=== PATIENT | female | born 1985 | race Caucasian/White ===

== ENCOUNTER 2019-09-09 12:03 | Inpatient (IN) | payer BC ==
[2019-09-09] MEDS ORDERED: LIDOCAINE 1% INJ-PF (10 MG/ML) 30 ML SDV ONE (12:35)
[2019-09-09] MEDS ORDERED: OXYTOCIN/NORMAL SALINE 20 UNIT/1,000 ML RTUINJ ONE (12:35)
[2019-09-09] MEDS ORDERED: PENICILLIN G-K 5 MILLION UNIT VIAL ONE ×2 (12:35→17:06)
[2019-09-09] MEDS ORDERED: MISOPROSTOL 0.2 MG TABLET ONE (12:35)
[2019-09-09] MEDS ORDERED: PENICILLIN G POTASSIUM 5,000,000 UNIT in DEXTROSE 5%-WATER 100 ML IV ONE (12:40)
[2019-09-09] MEDS ORDERED: RINGERS SOLUTION,LACTATED 1,000 ML IV PRN (12:40)
--- NOTE | 2019-09-09 12:48 | Admission Physical ---
Datetime Report Generated by CPN: 09/09/2019 12:48 CURRENT ADMISSION Hx Assessment: The History has been Reviewed and is Current Chief Complaint: Uterine Contractions Indication for Induction: Not Applicable Admit Impression : Term, Intrauterine ; Active Labor; Intact Membranes Admit Plan: Admit to Unit; Initiate Labor Protocol Admit Plan- Other: + GBS, start PCN prophylaxis ALLERGIES Medication Allergies: Yes Medication Allergies: prednisone (09/09/2019) OBSTETRICAL HISTORY EDC: 09/15/2019 00:00 : 2 Para: 1 Term: 1 : 0 SAB: 0 IAB: 0 Ectopic: 0 Livin Cesareans: 0 VBACs: 0 Multiple Births: 0 Gestational Diabetes: No Rh Sensitization: No Incompetent Cervix: No HORACE: No Infertility: No ART Treatment: No Uterine Anomaly: No IUGR: No Hx Previous C/S: No Macrosomia: No Hx Loss/Stillborn: No PIH: No Hx : No Placenta Previa/Abruption: No Depression/PP Depression: No PTL/PROM: No Post Hemorrhage: No SEE RECORDS Alcohol: No Marijuana : No Cocaine: No Other Illicit Drugs: No Cigarettes: Never Smoker. 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 Heart Disease: No Hosp/Surgery: No Autoimmune Disorder: No Anesthetic Complications: No Kidney Disease: No Abnormal Pap Smear: No Neuro/Epilepsy: No Psychiatric Disorders: No Other Medical Diseases: No Hepatitis/Liver Disease: No Significant Family History: No Varicosities/Phlebitis: No Trauma/Violence : No Thyroid Dysfunction: Yes Medical History Comments: hypothyroid INFECTIOUS HISTORY Gonorrhea: No Genital Herpes: No Chlamydia: No Tuberculosis: No Syphilis: No Hepatitis: No HIV/AIDS Exposure: No Rash or Viral Illness: No HPV: No PHYSICAL EXAM General: Normal HEENT: Deferred Neurologic: Normal Thyroid: Deferred Heart: Normal Lungs: Normal Breast: Deferred Back: Deferred Abdomen: Normal Genitourinary Exam: Normal Extremities: Normal DTRs: Deferred Pelvic Type: Adequate Vital Signs: Reviewed VAGINAL EXAM Dilatation: 6 Effacement: 60 Station: -2 MEMBRANES Membranes: Bulging FETUS A EGA: 39.1 Monitoring: External US FHR- Baseline: 140 Variability: Moderate 6-25bpm Accelerations: 15X15 Decelerations: None FHR Category: Category I Presentation: Vertex Admit Comment: Admit for labor PLANS FOR LABOR AND DELIVERY Labor and Delivery: None Pain Management: None Feeding Preference: Breast Benefit of Breast Feed Discussed: Yes Circumcision: No INFORMED CONSENT Assignment: Giselle Cuadra MD Signature: with User ID: Marcus : with User ID: Marcus
[2019-09-09 12:59] LABS: APPEARANCE,URINE CLOUDY; BILIRUBIN,URINE NEGATIVE (NEGATIVE); COLOR,URINE YELLOW; GLUCOSE, URINE NEGATIVE (NEGATIVE); KETONES,URINE NEGATIVE (NEGATIVE); LEUKOCYTE ESTERASE,URINE LARGE (NEGATIVE); NITRITE,URINE NEGATIVE (NEGATIVE); PROTEIN,URINE 30 mg/dL (NEGATIVE); URINE SPECIFIC GRAVITY 1.018; UROBILINOGEN,URINE NEGATIVE mg/dL (<2.0)
[2019-09-09 13:22] LABS: URINE AMPHETAMINES SCREEN NEGATIVE; URINE BARBITURATES SCREEN NEGATIVE; URINE BENZODIAZEPINES SCREEN NEGATIVE; URINE COCAINE SCREEN NEGATIVE; URINE MARIJUANA (THC) SCREEN NEGATIVE; URINE METHADONE SCREEN NEGATIVE; URINE PHENCYCLIDINE SCREEN NEGATIVE
[2019-09-09 14:36] LABS: ABSOLUTE LYMPHOCYTES (AUTO) 1.1 10^3/uL (0.5-4.7); ABSOLUTE MONOCYTES (AUTO) 0.7 10^3/uL (0.1-1.4); ABSOLUTE NEUT (AUTO) 13.9 10^3/uL (1.7-8.2); BASOPHILS % (AUTO) 0.2 % (0-2); HEMATOCRIT 31.9 % (36.0-47.0); HEMOGLOBIN 11.5 g/dL (12.0-15.5); LYMPHOCYTES % (AUTO) 7.2 % (13-45); MEAN CORPUSCULAR HEMOGLOBIN 31.2 pg (27.0-33.4); MEAN CORPUSCULAR HGB CONC 36.1 g/dL (32.0-36.0); MEAN CORPUSCULAR VOLUME 86 fl (80-97); MONOCYTES % (AUTO) 4.4 % (3-13); PLATELET COUNT 171 10^3/uL (150-450); RED CELL DISTRIBUTION WIDTH 13.4 % (11.5-14.0); SEGMENTED NEUTROPHILS % (AUTO) 88.2 % (42-78); TOTAL CELLS COUNTED % (AUTO) 100 %; WHITE BLOOD COUNT 15.8 10^3/uL (4.0-10.5)
[2019-09-09] MEDS ORDERED: ONDANSETRON HCL INJ/PF 4 MG/2 ML SDV IV ONE (16:03)
[2019-09-09] MEDS ORDERED: ONDANSETRON HCL INJ/PF 4 MG/2 ML SDV ONE (16:04)
[2019-09-09] MEDS ORDERED: PENICILLIN G POTASSIUM 2,500,000 UNIT in DEXTROSE 5%-WATER 50 ML IV SCH (16:42)
[2019-09-09] MEDS ORDERED: PROMETHAZINE HCL 25 MG TABLET PO PRN (18:01)
[2019-09-09] MEDS ORDERED: MEASLES,MUMPS&RUBELLA VACC/PF 0.5 ML VIAL SUBCUT PRN (18:01)
[2019-09-09] MEDS ORDERED: PROMETHAZINE HCL INJ 25 MG/1 ML VIAL IV PRN (18:01)
[2019-09-09] MEDS ORDERED: GLYCERIN/WITCH HAZEL LEAF 1 EACH MED..WIPE TP PRN (18:01)
[2019-09-09] MEDS ORDERED: PROMETHAZINE HCL 25 MG SUPP.RECT PR PRN (18:01)
[2019-09-09] MEDS ORDERED: ACETAMINOPHEN 650 MG SUPP.RECT PR PRN (18:01)
[2019-09-09] MEDS ORDERED: BENZOCAINE/MENTHOL AEROSOL SPRAY 56 ML TOP PRN (18:01)
[2019-09-09] MEDS ORDERED: ZOLPIDEM TARTRATE 5 MG TABLET PO PRN (18:01)
[2019-09-09] MEDS ORDERED: OXYTOCIN/NORMAL SALINE 20 UNIT/1,000 ML RTUINJ IV PRN (18:01)
[2019-09-09] MEDS ORDERED: MAGNESIUM HYDROXIDE SUSP 30 ML UDCUP PO PRN (18:01)
[2019-09-09] MEDS ORDERED: DIPH/PERTUSS(ACELL)/TETANUS VAC/PF 0.5 ML SYR (>=10YO) IM PRN (18:01)
[2019-09-09] MEDS ORDERED: ACETAMINOPHEN WITH CODEINE #3 TABLET PO PRN (18:01)
[2019-09-09] MEDS ORDERED: DIPHENHYDRAMINE HCL 25 MG CAPSULE PO PRN (18:01)
[2019-09-09] MEDS ORDERED: NA PHOS,M-B/NA PHOS,DI-BA (ADULT) 133 ML ENEMA PR PRN (18:01)
[2019-09-09] MEDS ORDERED: PSEUDOEPHEDRINE HCL 30 MG TABLET PO PRN (18:01)
[2019-09-09] MEDS ORDERED: DIBUCAINE 1% OINTMENT 28 GM TP PRN (18:01)
[2019-09-09] MEDS ORDERED: IBUPROFEN 800 MG TABLET ONE (18:27)
[2019-09-09] MEDS ORDERED: MISOPROSTOL 0.1 MG TABLET PR ONE (18:39)
[2019-09-09] MEDS: FAMOTIDINE 20 MG TABLET PO SCH (21:17)
[2019-09-09] MEDS: ACETAMINOPHEN WITH CODEINE #3 TABLET PO PRN (22:49)
[2019-09-10] MEDS: IBUPROFEN 800 MG TABLET PO SCH ×4 (06:36→22:02)
[2019-09-10 07:24] LABS: HEMATOCRIT 34.8 % (36.0-47.0); HEMOGLOBIN 12.4 g/dL (12.0-15.5); MEAN CORPUSCULAR HEMOGLOBIN 30.8 pg (27.0-33.4); MEAN CORPUSCULAR HGB CONC 35.5 g/dL (32.0-36.0); MEAN CORPUSCULAR VOLUME 87 fl (80-97); PLATELET COUNT 192 10^3/uL (150-450); RED BLOOD COUNT 4.02 10^6/uL (3.72-5.28); RED CELL DISTRIBUTION WIDTH 13.9 % (11.5-14.0); WHITE BLOOD COUNT 19.4 10^3/uL (4.0-10.5)
[2019-09-10] MEDS: LEVOTHYROXINE SODIUM 0.075 MG TABLET PO SCH (08:53)
[2019-09-10] MEDS: FAMOTIDINE 20 MG TABLET PO SCH ×2 (09:37→22:03)
[2019-09-10] MEDS: FERROUS SULFATE 325 MG TABLET PO SCH ×2 (09:37→17:10)
[2019-09-10] MEDS: SENNOSIDES/DOCUSATE 8.6-50 MG 1 EACH TABLET PO SCH (09:37)
[2019-09-10] MEDS: PRENATAL VITAMIN W DHA CAPSULE PO SCH (09:37)
[2019-09-10] MEDS: DOCUSATE SODIUM 100 MG CAPSULE PO SCH ×2 (09:37→17:10)
[2019-09-10] MEDS ORDERED: LEVOTHYROXINE SODIUM 0.075 MG TABLET PO SCH (10:00)
--- NOTE | 2019-09-10 11:05 | PDOC PROGRESS REPORT ---
Subjective-OB Progress Note for:: 09/10/19 - PP Day #1, doing well, , up voiding, no complaints. O+, Rubella Non-immune Physical Exam (OB) Vital Signs: Temp Pulse Resp BP Pulse Ox 97.9 F 64 18 117/79 98 09/10/19 07:32 09/10/19 07:32 09/10/19 07:32 09/10/19 07:32 09/10/19 07:32 Intake & Output 09/09/19 09/10/19 09/11/19 06:59 06:59 06:59 Weight 144.4 kg - General General Appearance: Appears well, Alert - PIH/Pre-Eclampsia Headache: Absent Epigastric Pain: No Visual Changes: No - Lochia Lochia Amount: Scant < 10 ml Lochia Color: Rubra/Red - Abdomen Description: Soft Fundal Description: Firm, Midline Fundal Height: u/u - u/2 - Respiratory Respiratory Status: No respiratory distress - Abdominal Distension: No distension Tenderness: Nontender - Genitourinary Genitourinary Note: voiding - Extremities Upper extremity: Normal inspection Lower extremities: Normal inspection - Neurological Cognition: Normal Orientation: AAOx4 - Skin Skin Temperature: Warm Skin Moisture: Dry Objective-Diagnostic Laboratory: 09/10/19 07:03 09/09/19 09/09/19 09/09/19 12:20 14:07 14:07 WBC 15.8 H RBC 3.70 L Hgb 11.5 L Hct 31.9 L MCV 86 MCH 31.2 MCHC 36.1 H RDW 13.4 Plt Count 171 Seg Neutrophils % 88.2 H Urine Color YELLOW Urine Appearance CLOUDY Urine pH 5.0 Ur Specific [place] 1.018 Urine Protein 30 H Urine Glucose (UA) NEGATIVE Urine Ketones NEGATIVE Urine Blood MODERATE H Urine Nitrite NEGATIVE Ur Leukocyte Esterase LARGE H Blood Type O POSITIVE Antibody Screen NEGATIVE 09/10/19 07:03 WBC 19.4 H RBC 4.02 Hgb 12.4 Hct 34.8 L MCV 87 MCH 30.8 MCHC 35.5 RDW 13.9 Plt Count 192 Seg Neutrophils % Urine Color Urine Appearance Urine pH Ur Specific [place] Urine Protein Urine Glucose (UA) Urine Ketones Urine Blood Urine Nitrite Ur Leukocyte Esterase Blood Type Antibody Screen Assessment and Plan(PN) - Assessment and Plan (1) Active labor at term Is this a current diagnosis for this admission?: Yes (2) Group B streptococcal carriage complicating Is this a current diagnosis for this admission?: Yes (3) Vaginal delivery Is this a current diagnosis for this admission?: Yes - Time Spent with Patient Time with patient: Less than 15 minutes Medications reviewed and adjusted accordingly: Yes - Disposition Anticipated Discharge: Home Within: within 24 hours
[2019-09-10] MEDS: ACETAMINOPHEN WITH CODEINE #3 TABLET PO PRN (15:25)
[2019-09-11] MEDS: LEVOTHYROXINE SODIUM 0.075 MG TABLET PO SCH (05:15)
[2019-09-11] MEDS: IBUPROFEN 800 MG TABLET PO SCH (05:15)
[2019-09-11 08:26] VITALS: BP 117/78
[2019-09-11] MEDS: FAMOTIDINE 20 MG TABLET PO SCH (09:50)
[2019-09-11] MEDS: DOCUSATE SODIUM 100 MG CAPSULE PO SCH (09:50)
[2019-09-11] MEDS: FERROUS SULFATE 325 MG TABLET PO SCH (09:50)
[2019-09-11] MEDS: PRENATAL VITAMIN W DHA CAPSULE PO SCH (09:50)
[2019-09-11] MEDS: SENNOSIDES/DOCUSATE 8.6-50 MG 1 EACH TABLET PO SCH (09:50)
[2019-09-11] MEDS: ACETAMINOPHEN WITH CODEINE #3 TABLET PO PRN (09:57)
--- NOTE | 2019-09-11 10:24 | PDOC PROGRESS REPORT ---
Subjective-OB Progress Note for:: 09/11/19 Subjective: Ready for discharge. Physical Exam (OB) Vital Signs: Temp Pulse Resp BP Pulse Ox 97.7 F 75 16 117/78 98 09/11/19 08:24 09/11/19 08:24 09/11/19 08:24 09/11/19 08:24 09/11/19 08:24 Intake & Output 09/10/19 09/11/19 09/12/19 06:59 06:59 06:59 Weight 144.4 kg - PIH/Pre-Eclampsia DTR's: 2 + Clonus: Negative Headache: Absent Epigastric Pain: No Visual Changes: No - Lochia Lochia Amount: Scant < 10 ml Lochia Color: Rubra/Red - Abdomen Description: Soft Hernia Present: No Bowel Sounds: Normoactive Flatus Presence: Present Stool: Yes Fundal Description: Firm, Midline Fundal Height: u/u - u/2 Objective-Diagnostic Laboratory: 09/10/19 07:03 Assessment and Plan(PN) - Time Spent with Patient Medications reviewed and adjusted accordingly: Yes - Disposition Anticipated Discharge: Home
--- NOTE | 2019-09-11 10:31 | PDOC DISCHARGE SUMMARY ---
Impression - Admit/DC Date/PCP Admission Date/Primary Care Provider: 09/09/19 12:37 DEBORA MEMBRENO MD Discharge Date: 09/11/19 - Discharge Diagnosis (1) Active labor at term Is this a current diagnosis for this admission?: Yes (2) Group B streptococcal carriage complicating Is this a current diagnosis for this admission?: Yes (3) Vaginal delivery Is this a current diagnosis for this admission?: Yes - Additional Information Resuscitation Status: Full Code Discharge Diet: Regular Discharge Activity: Activity As Tolerated, Balance Activity w/Rest, Pelvic Rest, Slowly Increase Activity, No tub bath Referrals: DEBORA MEMBRENO MD [Primary Care Provider] - Home Medications: Vits96/Iron Fum/Folic [ Tablet] 1 tab PO DAILY 09/09/19 HPI Gestational Age: 39.1 wks Reason(s) for Admission: Onset of Labor Procedures: Ultrasound Intrapartum Procedure(s): Spontaneous Vaginal Delivery Results Laboratory Results: WBC 19.4 10^3/uL (4.0-10.5) H 09/10/19 07:03 RBC 4.02 10^6/uL (3.72-5.28) 09/10/19 07:03 Hgb 12.4 g/dL (12.0-15.5) 09/10/19 07:03 Hct 34.8 % (36.0-47.0) L 09/10/19 07:03 MCV 87 fl (80-97) 09/10/19 07:03 MCH 30.8 pg (27.0-33.4) 09/10/19 07:03 MCHC 35.5 g/dL (32.0-36.0) 09/10/19 07:03 RDW 13.9 % (11.5-14.0) 09/10/19 07:03 Plt Count 192 10^3/uL (150-450) 09/10/19 07:03 Lymph % (Auto) 7.2 % (13-45) L 09/09/19 14:07 [place] % (Auto) 4.4 % (3-13) 09/09/19 14:07 Eos % (Auto) 0.0 % (0-6) 09/09/19 14:07 Baso % (Auto) 0.2 % (0-2) 09/09/19 14:07 Absolute Neuts (auto) 13.9 10^3/uL (1.7-8.2) H 09/09/19 14:07 Absolute Lymphs (auto) 1.1 10^3/uL (0.5-4.7) 09/09/19 14:07 Absolute Monos (auto) 0.7 10^3/uL (0.1-1.4) 09/09/19 14:07 Absolute Eos (auto) 0.0 10^3/uL (0.0-0.6) 09/09/19 14:07 Absolute Basos (auto) 0.0 10^3/uL (0.0-0.2) 09/09/19 14:07 Seg Neutrophils % 88.2 % (42-78) H 09/09/19 14:07 Urine Color YELLOW 09/09/19 12:20 Urine Appearance CLOUDY 09/09/19 12:20 Urine pH 5.0 (5.0-9.0) 09/09/19 12:20 Ur Specific [place] 1.018 09/09/19 12:20 Urine Protein 30 mg/dL (NEGATIVE) H 09/09/19 12:20 Urine Glucose (UA) NEGATIVE mg/dL (NEGATIVE) 09/09/19 12:20 Urine Ketones NEGATIVE mg/dL (NEGATIVE) 09/09/19 12:20 Urine Blood MODERATE (NEGATIVE) H 09/09/19 12:20 Urine Nitrite NEGATIVE (NEGATIVE) 09/09/19 12:20 Urine Bilirubin NEGATIVE (NEGATIVE) 09/09/19 12:20 Urine Urobilinogen NEGATIVE mg/dL (<2.0) 09/09/19 12:20 Ur Leukocyte Esterase LARGE (NEGATIVE) H 09/09/19 12:20 Urine Ascorbic Acid NEGATIVE (NEGATIVE) 09/09/19 12:20 Urine Opiates Screen NEGATIVE 09/09/19 12:20 Urine Methadone Screen NEGATIVE 09/09/19 12:20 Ur Barbiturates Screen NEGATIVE 09/09/19 12:20 Ur Phencyclidine Scrn NEGATIVE 09/09/19 12:20 Ur Amphetamines Screen NEGATIVE 09/09/19 12:20 U Benzodiazepines Scrn NEGATIVE 09/09/19 12:20 Urine Cocaine Screen NEGATIVE 09/09/19 12:20 U Marijuana (THC) Screen NEGATIVE 02/04/20 12:20 RPR NONREACTIVE (NONREACTIVE) 09/09/19 14:07 Blood Type O POSITIVE 09/09/19 14:07 Antibody Screen NEGATIVE 09/09/19 14:07 Plan Plan of Treatment: Discharge home. Follow up at [facility] 4 wks or prn.
[2019-09-11 11:59] LABS: HEMATOCRIT 31.9 % (36.0-47.0); HEMOGLOBIN 11.5 g/dL (12.0-15.5); MEAN CORPUSCULAR HEMOGLOBIN 31.2 pg (27.0-33.4); MEAN CORPUSCULAR HGB CONC 35.9 g/dL (32.0-36.0); MEAN CORPUSCULAR VOLUME 87 fl (80-97); PLATELET COUNT 187 10^3/uL (150-450); RED BLOOD COUNT 3.67 10^6/uL (3.72-5.28); RED CELL DISTRIBUTION WIDTH 13.8 % (11.5-14.0); WHITE BLOOD COUNT 10.6 10^3/uL (4.0-10.5)
--- NOTE | 2019-09-15 14:54 | Delivery Summary ---
Del Sum A-C Datetime Report Generated by CPN: 09/15/2019 14:53 DELIVERY PERSONNEL DELIVERY PERSONNEL: [id number] Delivery Doctor:: Giselle Cuadra MD Labor and Delivery Nurse:: Isabella Goins RNfast food services manager Nurse:: TRAVIS St Exhibit Carpenter/METAL CASTER: Yumiko Phan, ST Exhibit Carpenter/METAL CASTER: Abimbola Dewitt SUPERVISOR FILES Additional Personnel: : Leeann Franks RN MATERNAL INFORMATION Delivery Anesthesia: None Medications After Delivery: Pitocin Bolus-Please Comment Delivery QBL: 150 Delivery QBL Comment: 150ml Maternal Complications: None Provider Comments: VMI delivered in KENNA presentation. No nuchal cord. Shoulders and body delivered without difficulty. Cord doubly clamped and cut. Infant to maternal abdomen. No perineal lacerations. Placenta delivered intact spontaneously. FF at U at bladder drained. Mother and baby stable upon provider leaving the room. LABOR SUMMARY EDC: 09/15/2019 00:00 No. Babies in Womb: 1 Attempted: No Labor Anesthesia: IV Sedation LABOR INFORMATION Reason for Induction: Not Applicable Onset of Labor: 09/09/2019 13:30 Complete Dilatation: 09/09/2019 17:15 Oxytocin: N/A Group B Beta Strep: positive Antibiotics # of Doses: 2 Antibiotics Time of Last Dose: 1700 Name of Antibiotic Given: penicillin Steroids Given: None Reason Steroids Not Administered: Not Applicable MEMBRANES Membranes Rupture Method: Spontaneous Rupture of Membranes: 09/09/2019 17:07 Length of Rupture (hr): 0.45 Amniotic Fluid Color: Clear Amniotic Fluid Amount: Large Amniotic Fluid Odor: Normal STAGES OF LABOR Stage 1 hr: 3 Stage 1 min: 45 Stage 2 hr: 0 Stage 2 min: 19 Stage 3 hr: 0 Stage 3 min: 6 Total Time in Labor hr: 4 Total Time in Labor min: 10 VAGINAL DELIVERY Episiotomy: None Laceration #1: None Laceration Extension #1: N/A Laceration Repair: Not Applicable Sponge Count Correct: Yes Sharps Count Correct: Yes CSECTION DELIVERY Primary Indication: N/A Secondary Indication: N/A BABY A INFORMATION Delivery Date/Time: 09/09/2019 17:34 Method of Delivery: Vaginal Nurse Controlled Delivery: No Born in Route : No : N/A Forceps: N/A Vacuum Extraction: N/A Shoulder Dystocia : No PRESENTATION/POSITION BABY A Presentation: Cephalic Cephalic Presentation: Vertex Breech Presentation: N/A PLACENTA INFORMATION BABY A Placenta Delivery Time : 09/09/2019 17:40 Placenta Method of Delivery: Spontaneous Placenta Status: Delivered INFANT INFORMATION BABY A Gestational Age at Delivery: 39.1 Gestational Status: Full Term- 39- 40.6 Weeks Outcome : Liveborn Condition : Stable Sex: Male IDENTIFICATION BABY A Verification Date/Time: 09/09/2019 17:50 ID Band Number: [id number] Mother's Name Verified: Yes RN Verifying Infant: M Sasala RN Additional Verifying Personnel: P WEIGHT/LENGTH BABY A Infant Birthweight (gm): 3355 Infant Weight (lb): 7 Infant Weight (oz): 6 Length (in): 20.50 Infant Length (cm): 52.07 CORD INFORMATION BABY A No. Cord Vessels: 3 Nuchal Cord : N/A Cord Blood Taken: Yes-For Eval (Mom's Blood Type - or O+) Infant Suction: None ASSESSMENT BABY A Skin to Skin: Yes BABY B INFORMATION : N/A SIGNATURES Signature: with User ID: Viji Caballero I was personally available for consultation and serving as supervising physician for the MLP.
== END 2019-09-11 13:41 | disposition home or self-care (01) | DRG 807 ==
LOC: LC 12:03 → LR 12:37 → 2S 20:52
PROVIDERS: ADMIT Student in an Organized Health Care Education/Training Program; ATTEND Student in an Organized Health Care Education/Training Program
PROC: 10E0XZZ Delivery of Products of Conception, External Approach (ICD-10-PCS; principal; 2019-09-09)
DX: O99.824 Streptococcus B carrier state complicating childbirth (principal); Z37.0 Single live birth; O99.284 Endocrine, nutritional and metabolic diseases complicating childbirth; E03.9 Hypothyroidism, unspecified; Z3A.39 39 weeks gestation of pregnancy
CPT/HCPCS: 36415; 80307; 81005; 85025; 85027; 86592; 86850; 86900; 86901; J2405; J2540; J2590; J3490

== ENCOUNTER 2020-08-21 20:26 | Emergency (ER) | payer BC ==
--- NOTE | 2020-08-21 21:22 | ER Document Report ---
ED Medical Screen (RME) - General Chief Complaint: Chest Pain Stated Complaint: CHEST PAIN Time Seen by Provider: 08/21/20 21:17 Primary Care Provider: DEBORA MEMBRENO MD [Primary Care Provider] - Follow up as needed Notes: HPI: 35-year-old female with history of palpitations several years ago presenting for 2 days of fairly constant palpitations that are causing some shortness of breath lightheadedness and chest pressure. 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 States she does have a thyroid issue that she is not currently on her medication for and is waiting for endocrinology appointment PHYSICAL EXAMINATION: EKG normal sinus rhythm without ectopy. Lung sounds are clear to auscultation regular rate and rhythm. I have greeted and performed a rapid initial assessment of this patient. A comprehensive ED assessment and evaluation of the patient, analysis of test results and completion of medical decision making process will be conducted by an additional ED providers. Please note that clinical decision making for this patient was made during the 2019 pandemic of novel coronavirus which caused a significant strain on the healthcare system including at this particular [facility]. Criteria for admission discharge and level of care decisions as well as treatment decisions have necessarily changed TRAVEL OUTSIDE OF THE [place] IN LAST 30 DAYS: No - Related Data Allergies/Adverse Reactions: amoxicillin [From Augmentin] Allergy (Verified 09/09/19 21:39) Nausea clavulanic acid [From Augmentin] Allergy (Verified 09/09/19 21:39) Nausea prednisone Allergy (Verified 09/09/19 21:39) Anaphylaxis Physical Exam - Vital signs Vitals: Temp Pulse Resp BP Pulse Ox 98.3 F 102 H 16 120/86 H 99 08/21/20 21:03 08/21/20 21:03 08/21/20 21:03 08/21/20 21:03 08/21/20 21:03 Course - Vital Signs Vital signs: Temp Pulse Resp BP Pulse Ox 98.3 F 102 H 16 120/86 H 99 08/21/20 21:03 08/21/20 21:03 08/21/20 21:03 08/21/20 21:03 08/21/20 21:03 Doctor's Discharge - Discharge Referrals: DEBORA MEMBRENO MD [Primary Care Provider] - Follow up as needed
[2020-08-21 22:36] LABS: ABSOLUTE EOSINOPHILS # (AUTO) 0.1 10^3/uL (0.0-0.6); ABSOLUTE LYMPHOCYTES (AUTO) 2.1 10^3/uL (0.5-4.7); ABSOLUTE MONOCYTES (AUTO) 0.4 10^3/uL (0.1-1.4); ABSOLUTE NEUT (AUTO) 5.9 10^3/uL (1.7-8.2); BASOPHILS % (AUTO) 0.3 % (0-2); EOSINOPHILS % (AUTO) 0.8 % (0-6); HEMATOCRIT 39.4 % (36.0-47.0); HEMOGLOBIN 14.1 g/dL (12.0-15.5); LYMPHOCYTES % (AUTO) 24.6 % (13-45); MEAN CORPUSCULAR HEMOGLOBIN 29.8 pg (27.0-33.4); MEAN CORPUSCULAR HGB CONC 35.8 g/dL (32.0-36.0); MEAN CORPUSCULAR VOLUME 83 fl (80-97); PLATELET COUNT 255 10^3/uL (150-450); RED BLOOD COUNT 4.73 10^6/uL (3.72-5.28); RED CELL DISTRIBUTION WIDTH 13.3 % (11.5-14.0); SEGMENTED NEUTROPHILS % (AUTO) 69.3 % (42-78); TOTAL CELLS COUNTED % (AUTO) 100 %; WHITE BLOOD COUNT 8.5 10^3/uL (4.0-10.5)
--- NOTE | 2020-08-21 22:44 | RADIOLOGY REPORT (SQ) ---
EXAM: CHEST 2 VIEWS CLINICAL INDICATION: 35-year-old female with palpitations. TECHNIQUE: Two-view, PA and lateral projections of the chest were obtained. COMPARISON: None. FINDINGS: Unremarkable cardiac and mediastinal silhouette. Heart size is normal. Lungs are clear without focal opacity, pneumothorax or pleural effusions. The visualized bones are within normal limits. IMPRESSION: No acute cardiopulmonary abnormalities.
[2020-08-21 23:16] LABS: ALKALINE PHOSPHATASE 69 U/L (38-126); ANION GAP 7 (5-19); ASPARTATE AMINO TRANSFERASE 20 U/L (14-36); BILIRUBIN,DIRECT 0.1 mg/dL (0.0-0.4); BILIRUBIN,TOTAL 0.8 mg/dL (0.2-1.3); BLOOD UREA NITROGEN 9 mg/dL (7-20); CALCIUM 9.6 mg/dL (8.4-10.2); CARBON DIOXIDE 30 mmol/L (22-30); CHLORIDE 103 mmol/L (98-107); GLUCOSE 86 mg/dL (75-110); POTASSIUM 4.3 mmol/L (3.6-5.0)
--- NOTE | 2020-08-21 23:41 | ER Document Report ---
ED General - General Chief Complaint: Palpitations Stated Complaint: CHEST PAIN Time Seen by Provider: 08/21/20 21:17 Primary Care Provider: DEBORA MEMBRENO MD [Primary Care Provider] - Follow up as needed TRAVEL OUTSIDE OF THE [place] IN LAST 30 DAYS: No - HPI Context: Chief Complaint: [Tachycardia] [This is a 35-year-old female mother of 2 children, 1 child being 1 year and age and the other being 6 years old who presents complaining of constant palpitations and tachycardia for the past 2 weeks. Patient states she is also had some shortness of breath and lightheadedness along with this. Patient states that she is busy taking care of the children all day long and her is working 70 hours a week which leaves her with limited help with kids. Patient admits to moderate amount of caffeine and refined sugar intake. Patient admits to decreased water intake. Patient states she has noted some improvement in her symptoms when she has followed a "casandra" on her phone reminds her how much water to drink each day. ] History obtained from [patient] Symptoms began:[2 weeks ago] Onset: [Sudden] Timing: [Sudden] Quality: [Constant] Intensity: [Severe] Location: [Chest] Radiation: [Denies] [The pain does not migrate to a new location.] Aggravating factors: [none] Relieving factors: [none] Positive SOB [Denies] nausea [Denies] vomiting [Denies] sweats [Denies] fever [Denies] cough [Denies] calf or leg swelling or pain - Related Data Allergies/Adverse Reactions: prednisone Allergy (Verified 08/22/20 00:42) Anaphylaxis clavulanic acid [From Augmentin] Adverse Reaction (Verified 08/22/20 00:42) Nausea Past Medical History - General Information source: Patient - Social History Smoking Status: Never Smoker Chew tobacco use (# tins/day): No Frequency of alcohol use: None Drug Abuse: None Lives with: Family Family History: Reviewed & Not Pertinent Patient has homicidal ideation: No Review of Systems - Review of Systems Notes: Review of systems as below unless otherwise stated in HPI. CONSTITUTIONAL [No] fever, [No] chills. EYES [No] eye pain. ENT [No] URI symptoms, [No] sore throat, [No] ear pain. CARDIOVASCULAR [No] chest pain, positive palpitations, [No] edema. RESPIRATORY [No] Cough, [No] SOB, [No] wheezing. GASTROINTESTINAL [No] abdominal pain, [No] nausea, [No] Diarrhea, [No] Vomiting, [No] constipation, [No] melena, [No] rectal bleeding. GENITOURINARY [No] dysuria, [No] urinary frequency, [No] hematuria, [No] urinary urgency, [No] vaginal discharge, [No] vaginal bleeding. MUSCULOSKELETAL [No] Back pain. SKIN [No] Rash. NEUROLOGIC [No] Headache, [No] recent seizures, [No] paralysis,[No] parathesias. ENDOCRINE [No] polyuria. HEMO/LYMPATIC [No] easy brusing PSYCHIATRIC [No] depression. Positive anxiety Physical Exam - Vital signs Vitals: Temp Pulse Resp BP Pulse Ox 98.3 F 102 H 16 120/86 H 99 08/21/20 21:03 08/21/20 21:03 08/21/20 21:03 08/21/20 21:03 08/21/20 21:03 - Notes Notes: CONSTITUTIONAL [Vital signs reviewed, Patient appears nontoxic and to be in no acute distress, Alert and oriented X 3, Normal stature. Patient was asked to move from a supine position on the stretcher to a standing position by this MD. and at that the patient's heart rate went from the 80s supine to the 120s standing.] HEAD [Atraumatic, Normocephalic.] EYES [Eyes are normal to inspection, No discharge from eyes, Extraocular muscles intact, Sclera are normal, Conjunctiva are normal.] ENT [External ears normal to inspection, Nose examination normal, Mouth normal to inspection.] NECK [Normal ROM, No jugular venous distention, No meningeal signs, ] RESPIRATORY CHEST [Chest is nontender, Breath sounds normal, No respiratory distress.] CARDIOVASCULAR [RRR, No murmurs, Normal S1 S2, No rub, No gallop.] ABDOMEN [Abdomen is nontender, No pulsatile masses, No other masses, Bowel sounds normal, No distension, No peritoneal signs, No hernias.] BACK [There is no CVA Tenderness, There is no tenderness to palpation, Normal inspection.] UPPER EXTREMITY [Inspection normal, No cyanosis, No clubbing, No edema, LOWER EXTREMITY [Inspection normal, No cyanosis, No clubbing, No edema, No calf tenderness, NEURO [No focal motor deficits, No focal sensory deficits, Speech normal.] SKIN [Skin is warm, Skin is dry, Skin is normal color.] PSYCHIATRIC [Normal affect. ] Course - Re-evaluation Re-evalutation: 08/21/20 23:41 Differential diagnosis: Orthostatic tachycardia syndrome, PVCs, hyperthyroidism, electrolyte imbalance, anxiety 08/22/20 01:59 Medical decision making: Patient was noted that just by going from lying to sitting to standing her pulse went from the 80s to the 120s. When discussing this with the patient, she admits that she has been so busy taking care of her children and she is not taking very good care of herself and not drinking enough water. My impression is that the patient's tachycardia is basically due to v olume depletion. I ordered 2 bags normal saline IV and when I went back and reevaluate the patient she said she felt "so much better." Advised patient about the importance of taking time to take care of herself and discussed the results of the ED MSE with the patient. All questions were answered prior to discharge. Emergency signs and symptoms, reasons to return to the emergency department discussed with patient. Plan at this point is to discharge patient with instructions to stay hydrated and remember to take care of her self in addition to her family. - Vital Signs Vital signs: Temp Pulse Resp BP Pulse Ox 98.3 F 102 H 13 112/73 100 08/21/20 21:19 08/21/20 21:03 08/22/20 02:01 08/22/20 02:01 08/22/20 02:01 - Laboratory Results Result Diagrams: 08/21/20 22:33 08/21/20 22:33 Critical Laboratory Results Reviewed: No Critical Results Attending or Supervising Physician who Reviewed Labs: CLIFF VÁZQUEZ IV - Radiology Results Critical Radiology Results Reviewed: No Critical Results Attending or Supervising Physician who Reviewed Radiology: CLIFF VÁZQUEZ IV - EKG Interpretation by Me Additional EKG results interpreted by me: 08/21/20 23:40 EKG obtained on 08/21/2020 at 2113 hrs. was interpreted by this MD. Findings: Normal sinus rhythm, rate 94, normal axis, MI interval appears to be within normal limits, P waves proceed QRS complexes, QRS complexes appear narrow, QTC is 446, there are no obvious patterns of ST segment elevation, depression or reciprocal changes seen to suggest acute myocardial ischemia or infarction. There is no prior EKG available for comparison. Impression normal sinus rhythm with nonspecific ST segments. Discharge - Discharge Clinical Impression: Dehydration, Palpitations Condition: Stable Disposition: HOME, SELF-CARE Additional Instructions: Return to the Emergency Department without delay if any worse. Dehydration Dehydration can result from vomiting or diarrhea, fever, or decreased intake of fluids. If severe, hospitalization and intravenous fluids may be required. Most cases are treated at home with fluids by mouth. For the next 24 hours, drink lots of clear fluids. In mild cases, this can be soda pop or sports drinks. For more severe dehydration, the doctor may recommend special fluids such as Pedialyte or Lytren. Try to get three liters (3 quarts) of fluid per day. If vomiting occurs, continue to drink the fluids frequently (every 15 to 20 minutes), but in small amounts (one or two ounces). Depending on the type of dehydration, the doctor may prescribe antinausea medicine or potassium replacements. Call the doctor or return for re-examination if you become progressively weak, vomit repeatedly, or have other new symptoms. HOME CARE INSTRUCTIONS & INFORMATION: Thank you for choosing us for your medical needs. We hope you're satisfied with the care you received. After you leave, you must properly care for your problem and, at the same time, observe its progress. Any condition can change. Some illnesses can change rapidly over hours or days. If your condition worsens, return to the Emergency Department or see your physician promptly. ABOUT YOUR X-RAYS AND EKG'S: If you had an EKG or X-rays taken, they have been read by the Emergency Physician. The X-rays and EKG's will also be read by a Radiologist or Bead Flipper within 24 hours. If discrepancies are noted, you wi ll be notified by telephone. Please be certain the ED has a correct telephone number & address where you can be reached. Also, realize that some fractures or abnormalities do not show up on initial X-rays. If your symptoms continue, see your physician. ABOUT YOUR LABORATORY TEST: If you had laboratory tests, the results have been reviewed by the Emergency Physician. Some test results (for example cultures) may not be available for several days. You will be contacted if any test result shows you need additional treatment. Please be certain the ED has a correct telephone number and address where you can be reached. ABOUT YOUR MEDICATIONS: You will receive instructions on how to take your medicine on the prescription label you receive. Additional information may be provided by the Pharmacy. If you have questions afterwards, call the ED for clarification or further instructions. Some prescribed medications may cause drowsiness. Do not perform tasks such as driving a car or operating machinery without consulting your Pharmacist. If you feel you need a refill of pain medication, your condition will need re-evaluation. Please do not call for a refill of any medication. ABOUT YOUR SIGNATURE: Signature of this document acknowledges to followin. Understanding that you received emergency treatment and that you may be released before al medical problems are known or treated. Please be certain the ED has a correct phone number & address where you can be reached. 2. Acknowledgement that you will arrange for follow-up care as recommended. 3. Authorization for the Emergency Physician to provide information to your follow-up Physician in order to maximize your care. AT ANY TIME, IF YOUR SYMPTOMS CHANGE SIGNIFICANTLY OR WORSEN OR YOU DEVELOP NEW SYMPTOMS, RETURN TO THE EMERGENCY DEPARTMENT IMMEDIATELY FOR RE-EVALUATION. OUR GOAL IS TO PROVIDE EXCELLENT MEDICAL CARE! WE HOPE THAT WE HAVE MET YOUR EXPECTATIONS DURING YOUR EMERGENCY DEPARTMENT VISIT AND THAT YOU FEEL YOU HAVE RECEIVED EXCELLENT CARE! Palpitations (Irregular/Rapid Heartrate) Irregular or rapid heartbeat is called "palpitation." To diagnose the cause of palpitation, we have to "catch it in the act" with an EKG. Sinus Tachycardia: This is a rapid (but NORMAL) rhythm that can be due to fever, pain, anxiety, lack of sleep, over-exertion, or drugs. Cold medications, caffeine, and diet pills are particularly likely to cause tachycardia. Usually, all that's required is rest, reassurance, and avoiding caffeine, alcohol, nicotine, and unnecessary medicines. Paroxysmal Atrial Tachycardia (PAT): This abnormally rapid heartbeat is caused by a "short circuit" in the electrical system of the heart. It is not dangerous, unless other heart disease is present. These attacks of PAT may occur occasionally for years. Medication is available for treatment. Paroxysmal Atrial Fibrillation or Atrial Flutter: This is irregular electrical activity in the upper heart chamber. These abnormal rhythms often occur with valve disease or in hearts damaged by hardening of the arteries. These rhythms usually require further testing, for example a cardiac echo. Premature Beats: Extra beats occur more commonly after caffeine, nicotine, alcohol, cold pills, diet pills. Emotional stress or fatigue also provoke them. Extra beats are only dangerous when heart disease is present. They usually need no treatment. If they're frequent, or if evidence of heart disease develops, medication can be given to suppress them. If we were unable to "catch" the palpitations on EKG, you should try to get an EKG immediately if the symptoms begin again. Contact the physician at once if you develop persistent lightheadedness, shortness of breath, chest pain, or swelling of the ankles. Referrals: DEBORA MEMBRENO MD [Primary Care Provider] - Follow up as needed
[2020-08-21] MEDS: NORMAL SALINE 1000 ML 1,000 ML IV PRN (23:49)
[2020-08-22] MEDS: NORMAL SALINE 1000 ML 1,000 ML IV PRN (00:37)
[2020-08-22 02:31] VITALS: BP 112/73
--- NOTE | 2020-08-22 20:42 | EKG REPORT ---
SEVERITY:- NORMAL ECG - SINUS RHYTHM : Confirmed by: Neema Kwok MD 22-Aug-2020 20:41:15
== END 2020-08-22 02:42 | disposition home or self-care (01) ==
LOC: ER 20:26
DX: E86.0 Dehydration (principal); R00.2 Palpitations; R07.9 Chest pain, unspecified; R00.0 Tachycardia, unspecified
CPT/HCPCS: 93005; 99285; 96360; 96361; 36415; 83735; 84443; 84703; 85025; 80053; 71046; 93010; J7030 ×2

== ENCOUNTER 2020-08-25 15:24 | Emergency (ER) | payer BC ==
--- NOTE | 2020-08-25 16:27 | ER Document Report ---
ED Medical Screen (RME) - General Chief Complaint: Palpitations Stated Complaint: PALPITATIONS Time Seen by Provider: 08/25/20 16:17 Primary Care Provider: DEBORA MEMBRENO MD [Primary Care Provider] - Follow up as needed Mode of Arrival: Ambulatory TRAVEL OUTSIDE OF THE [place] IN LAST 30 DAYS: No - HPI Patient complains to provider of: Palpitations Notes: 08/25/20 16:25 Patient here with complaints of continued palpitations. The patient was seen for palpitations about a week ago. At that time her work-up was unremarkable in cluding normal thyroid studies, electrolytes and EKG. She states that she was given IV fluids and felt better after getting hydrated and she thought the palpitations she was experiencing was due to being dehydrated. She states that she has been doing a good job of keeping up with her water intake but she continues to have feelings of palpitations. She states that she feels like her heart is beating fast. She has a prior history of PVCs and PACs. She denies any chest pain or shortness of breath. No recent long trips or surgeries, no leg pain or leg swelling, no cancer, no hormones, no history of DVT or PE. Exam: Nontoxic no no distress. Lungs clear and equal throughout. Regular rate and rhythm, no murmur. No peripheral edema. An initial examination was made on the patient as part of the triage process, and it was determined a more comprehensive evaluation was necessary. Initial orders were placed and patient was transferred to another provider in the ED who assumed care and finished evaluation and plan. - Related Data Allergies/Adverse Reactions: prednisone Allergy (Verified 08/22/20 00:42) Anaphylaxis clavulanic acid [From Augmentin] Adverse Reaction (Verified 08/22/20 00:42) Nausea Physical Exam - Vital signs Vitals: Temp Pulse Resp BP Pulse Ox 98.8 F 100 16 124/80 100 08/25/20 15:33 08/25/20 15:33 08/25/20 15:33 08/25/20 15:33 08/25/20 15:33 Course - Vital Signs Vital signs: Temp Pulse Resp BP Pulse Ox 98.8 F 100 16 124/80 100 08/25/20 15:33 08/25/20 15:33 08/25/20 15:33 08/25/20 15:33 08/25/20 15:33 Doctor's Discharge - Discharge Referrals: DEBORA MEMBRENO MD [Primary Care Provider] - Follow up as needed
[2020-08-25 16:45] LABS: ABSOLUTE EOSINOPHILS # (AUTO) 0.1 10^3/uL (0.0-0.6); ABSOLUTE LYMPHOCYTES (AUTO) 1.3 10^3/uL (0.5-4.7); ABSOLUTE MONOCYTES (AUTO) 0.3 10^3/uL (0.1-1.4); ABSOLUTE NEUT (AUTO) 3.3 10^3/uL (1.7-8.2); BASOPHILS % (AUTO) 0.5 % (0-2); EOSINOPHILS % (AUTO) 1.1 % (0-6); HEMATOCRIT 40.3 % (36.0-47.0); HEMOGLOBIN 14.1 g/dL (12.0-15.5); LYMPHOCYTES % (AUTO) 25.9 % (13-45); MEAN CORPUSCULAR HEMOGLOBIN 29.1 pg (27.0-33.4); MEAN CORPUSCULAR VOLUME 83 fl (80-97); MONOCYTES % (AUTO) 6.5 % (3-13); PLATELET COUNT 225 10^3/uL (150-450); RED BLOOD COUNT 4.84 10^6/uL (3.72-5.28); TOTAL CELLS COUNTED % (AUTO) 100 %
[2020-08-25 17:08] LABS: ALBUMIN 4.7 g/dL (3.5-5.0); ALKALINE PHOSPHATASE 61 U/L (38-126); ASPARTATE AMINO TRANSFERASE 20 U/L (14-36); BILIRUBIN,DIRECT 0.1 mg/dL (0.0-0.4); BILIRUBIN,TOTAL 0.8 mg/dL (0.2-1.3); BLOOD UREA NITROGEN 11 mg/dL (7-20); CALCIUM 9.6 mg/dL (8.4-10.2); GLUCOSE 87 mg/dL (75-110); POTASSIUM 4.9 mmol/L (3.6-5.0); TOTAL PROTEIN 7.5 g/dL (6.3-8.2)
[2020-08-25 17:13] LABS: ANION GAP 5 (5-19); CARBON DIOXIDE 32 mmol/L (22-30); CHLORIDE 101 mmol/L (98-107)
--- OUTSIDE RECORDS SUMMARY | 2020-08-25 18:26 | XMS REPORT ---
:1985 [facility] Address [address] [address] Care Team Providers Name Role Phone Unavailable Unavailable Unavailable Allergies, Adverse Reactions, Alerts This patient has no known allergies or adverse reactions. Medications This patient has no known medications. Problems This patient has no known problems. Procedures This patient has no known procedures. Results This patient has no known results. Social History This patient has no known social history. Vital Signs This patient has no known vital signs.
--- NOTE | 2020-08-25 19:25 | EKG REPORT ---
SEVERITY:- ABNORMAL ECG - SINUS TACHYCARDIA PROBABLE LEFT ATRIAL ABNORMALITY NONSPECIFIC T ABNORMALITIES, INFERIOR LEADS : Confirmed by: Urbano Pierre MD 25-Aug-2020 19:24:29
--- NOTE | 2020-08-25 20:22 | ER Document Report ---
ED General - General Chief Complaint: Palpitations Stated Complaint: PALPITATIONS Time Seen by Provider: 08/25/20 16:17 Primary Care Provider: POLLY MO MD [ACTIVE STAFF] - Follow up as needed Mode of Arrival: Ambulatory Notes: Patient is a 35-year-old female who comes emergency department for chief complaint of palpitations. She states that frequently for the past 2 weeks she feels like her heart "has hiccups". She states that it is a scary jarring experiences, happens it happens frequently. She states that she does not have any chest pain, dizziness, shortness of breath, but she keeps noticing the palpitations and she is worried there is something wrong. She admits that she had a large amount of caffeine recently but over the past 2 weeks she has cut back completely and is not currently drinking caffeine. She states she slept for an extended period the day to try to catch up, she states that she has 2 young children currently, is currently breast-feeding, and her works long hours. She states she is somewhat stressed because of this but she is not depressed or suicidal. She states she has tried to increase her fluid intake but fell behind in the past day. She denies recreational drugs. She takes no daily medications. She states she had a Holter monitor years ago and was told she had PVCs and PACs but has not had one in years. TRAVEL OUTSIDE OF THE [place] IN LAST 30 DAYS: No - Related Data Allergies/Adverse Reactions: prednisone Allergy (Verified 08/22/20 00:42) Anaphylaxis clavulanic acid [From Augmentin] Adverse Reaction (Verified 08/22/20 00:42) Nausea Past Medical History - General Information source: Patient - Social History Smoking Status: Never Smoker Frequency of alcohol use: None Drug Abuse: None Lives with: Family Family History: Reviewed & Not Pertinent - Immunizations Immunizations up to date: Yes Hx Diphtheria, Pertussis, Tetanus Vaccination: Yes Review of Systems - Review of Systems Constitutional: No symptoms reported EENT: No symptoms reported Cardiovascular: See HPI Respiratory: No symptoms reported Gastrointestinal: No symptoms reported Genitourinary: No symptoms reported Female Genitourinary: No symptoms reported Musculoskeletal: No symptoms reported Skin: No symptoms reported Hematologic/Lymphatic: No symptoms reported Neurological/Psychological: No symptoms reported Physical Exam - Vital signs Vitals: Temp Pulse Resp BP Pulse Ox 98.8 F 100 16 124/80 100 08/25/20 15:33 08/25/20 15:33 08/25/20 15:33 08/25/20 15:33 08/25/20 15:33 - Notes Notes: GENERAL: Alert, interacts well. No acute distress. HEAD: Normocephalic, atraumatic. EYES: Pupils equal, round, and reactive to light. Extraocular movements intact. ENT: Oral mucosa moist, tongue midline. Oropharynx unremarkable. Airway patent. Nares patent, sinuses non-tender, ear canals unremarkable, TM's intact. NECK: Full range of motion. Supple. Trachea midline. No lymphadenopathy. LUNGS: Clear to auscultation bilaterally, no wheezes, rales, or rhonchi. No respiratory distress. Non-tender chest wall. HEART: Regular rate, occasional extrasystoles, no murmur ABDOMEN: Soft, non-tender. Non-distended. EXTREMITIES: Moves all 4 extremities spontaneously. No edema, normal radial and dorsalis pedis pulses bilaterally. No cyanosis. BACK: no cervical, thoracic, lumbar midline tenderness. No saddle anesthesia, normal distal neurovascular exam. Moves all extremities in full range of motion. NEUROLOGICAL: Alert and oriented x3. Normal speech. Cranial nerves II through XII grossly intact. Strength 5/5 in all extremities. PSYCH: Speaks anxiously rapidly, asks many questions SKIN: Warm, dry, normal turgor. No rashes or lesions noted. Course - Re-evaluation Re-evalutation: On the monitoring patient is noted to be having fairly frequent PVCs but not any consecutive PVCs or anything concerning. She does not get dizziness, she is not syncopal episodes, shortness of breath, or any other symptoms other than being aware of these PVCs when they happen. Patient becomes very distressed and anxious when she gets the PVCs as well. I did reassure her, her work-up today is unremarkable including electrolytes, she had TSH performed last time and was unremarkable, she does not have any chest pain or shortness of breath suggesting other etiology. She is not tachycardic, hypotensive, febrile, or hypoxic. She has no signs of distress other than anxiety on exam. I discussed options in details. Ultimately patient is very interested in symptom management, I feel like propranolol would be a good choice for her because of her combined breast-feeding anxiety situation, however she does agree that if she is started on this that she will follow-up very closely with cardiology for additional management. I did discuss with Dr. Rodríguez. I discussed follow-up instructions, expectations, and return precautions with patient. She states understanding and agreement. Stable and well-appearing at time of discharge. - Vital Signs Vital signs: Temp Pulse Resp BP Pulse Ox 98.4 F 80 16 120/84 100 08/25/20 23:17 08/25/20 23:17 08/25/20 23:17 08/25/20 23:17 08/25/20 23:17 - Laboratory Results Result Diagrams: 08/25/20 16:42 08/25/20 16:42 Laboratory Results Interpreted: 08/25/20 16:42 Carbon Dioxide 32 H Critical Laboratory Results Reviewed: No Critical Results - Radiology Results Critical Radiology Results Reviewed: No Critical Results - EKG Interpretation by Me Additional EKG results interpreted by me: EKG shows sinus tachycardia at a rate of 100, normal axis, QTC 444, borderline T wave in lead III but no T wave inversions or ST segment changes in consecutive leads. OR interval of 144. Discharge - Discharge Clinical Impression: Palpitations Condition: Stable Disposition: HOME, SELF-CARE Additional Instructions: Your evaluation does show PVCs, but no concerning problem, concerning rhythm, or other abnormality is noted. Because your PVCs are frequent at times we have prescribed propranolol to take with this, this also can help with anxiety. Take as prescribed, this is cessation of breast-feeding. Please follow-up with the cardiology referral for additional monitoring and management. Make sure you have good sleep, nourishment, hydration. Return for any concerning symptoms including developing chest pain, difficulty breathing, passing out, vomiting, fever, or any other concerning symptoms. Prescriptions: Propranolol HCl [Inderal 10 mg Tablet] 10 mg PO Q12 #60 tab Referrals: POLLY MO MD [ACTIVE STAFF] - Follow up as needed
[2020-08-25] MEDS ORDERED: NORMAL SALINE 1000 ML 1,000 ML IV ONE (20:37)
[2020-08-25] MEDS ORDERED: PROPRANOLOL HCL 10 MG TABLET PO ONE (22:36)
[2020-08-25 23:17] VITALS: BP 120/84
== END 2020-08-25 23:18 | disposition home or self-care (01) ==
LOC: ER 15:24
DX: I49.3 Ventricular premature depolarization (principal); F41.9 Anxiety disorder, unspecified; Z87.892 Personal history of anaphylaxis; Z88.8 Allergy status to other drugs, medicaments and biological substances
CPT/HCPCS: 93005; 99284; 96360; 36415; 83735; 84703; 85025; 80053; 93010; J3490; J7030